=== PATIENT | male | born 1970 | race Caucasian/White ===

== ENCOUNTER 2018-12-14 13:25 | Emergency (ER) | payer OTHER ==
[~2018-12-14] VITALS: Ht 175.3 cm; Wt 88.5 kg
[2018-12-14] MEDS ORDERED: PROAIR HFA8.5 GM INH (13:29)
[2018-12-14] MEDS ORDERED: LISINOPRIL10 MG PO (13:30)
[2018-12-14] MEDS ORDERED: ZYRTEC10 M5 PO (13:30)
[2018-12-14] MEDS ORDERED: ADVAIR HFA 230M12 GM INH (13:30)
[2018-12-14] MEDS ORDERED: ZOLOFT100 MG PO (13:30)
[2018-12-14] MEDS ORDERED: PRILOSEC OTC20 MG PO (13:31)
[2018-12-14] MEDS ORDERED: IRON325 PO (13:31)
[2018-12-14] MEDS ORDERED: UNICOMPLEX M TA1 TA1 PO (13:31)
[2018-12-14] MEDS ORDERED: CALCIUM CITRAT250 MG PO (13:31)
[2018-12-14] MEDS ORDERED: MOBIC7.5 MG PO (14:16)
[2018-12-14] MEDS ORDERED: ULTRAM 50MG TAB50 MG PO (14:16)
[2018-12-14] MEDS ORDERED: NORFLEX100 MG PO (14:16)
[2018-12-14 15:00] VITALS: BP 137/82
== END 2018-12-14 15:00 | disposition home or self-care (01) ==
LOC: ER 13:25
DX: M54.5 Low back pain (principal); J45.909 Unspecified asthma, uncomplicated; I10 Essential (primary) hypertension